=== PATIENT | male | born 1995 | race African-American/Black ===

== ENCOUNTER 2018-05-25 14:50 | Emergency (ER) | payer OTHER ==
[~2018-05-25] VITALS: Ht 172.7 cm; Wt 124.3 kg
[~2018-05-25 14:50] MED LIST: PRED50TA PO; SULF1TAB24 PO; TRIA15OI TP
[2018-05-25] MEDS ORDERED: diphenhydrAMINE 50 MG/ML VIAL IM ONE (15:30)
--- NOTE | 2018-05-25 15:39 | PHYS DOC ---
Past Medical History Past Medical History: Other Additional Past Medical Histor: ADHD, eczema Past Surgical History: No Surgical History Additional Information: 1 PPD Alcohol Use: Occasionally Drug Use: None, Marijuana Adult General Chief Complaint Chief Complaint: Neck Pain HPI HPI Patient is a 23 year old m p/w cc of muscle spasm took three haldols that belonged to his last night because he was very anxious. he feels better now from that regard but woke up today with spasm muscle left ant neck. it was giving him trouble breathing so he called 911. sat 99 on ra in triage. no prior hx of this no suicidal ideation. currently feeling bettte. Review of Systems Review of Systems Constitutional: Denies fever or chills [] Eyes: Denies change in visual acuity, redness, or eye pain [] Musculoskeletal: Denies back pain or joint pain [] Integument: Denies rash or skin lesions [] Neurologic: Denies headache, focal weakness or sensory changes [] Endocrine: Denies polyuria or polydipsia [] All other systems were reviewed and found to be within normal limits, except as documented in this note. Current Medications Current Medications Current Medications Medications (Trade) Dose Ordered Sig/Margaux Start Time Stop Time Status Last Admin Dose Admin Diphenhydramine HCl (Benadryl) 50 mg 1X ONCE 05/25/18 15:30 05/25/18 15:31 DC Allergies Allergies Allergies Coded Allergies Type Severity Reaction Last Updated Verified No Known Drug Allergies 05/12/13 No Physical Exam Physical Exam Constitutional: Well developed, well nourished, no acute distress, non-toxic appearance. [] HENT: Normocephalic, atraumatic, bilateral external ears normal, oropharynx moist, no oral exudates, nose normal. [] Eyes: PERRLA, EOMI, conjunctiva normal, no discharge. [] Neck: mild ttp noted left trap area, no trauma or ecchymosis sseen. Cardiovascular:Heart rate regular rhythm, no murmur [] Lungs & Thorax: Bilateral breath sounds clear to auscultation [] Abdomen: Bowel sounds normal, soft, no tenderness, no masses, no pulsatile masses. [] Skin: Warm, dry, no erythema, no rash. [] Back: No tenderness, no CVA tenderness. [] Extremities: No tenderness, no cyanosis, no clubbing, ROM intact, no edema. [] Neurologic: Alert and oriented X 3, normal motor function, normal sensory function, no focal deficits noted. [] Psychologic: Affect normal, judgement normal, mood normal. [] Current Patient Data Vital Signs Vital Signs Date Time Temp Pulse Resp B/P (MAP) Pulse Ox O2 Delivery O2 Flow Rate FiO2 05/25/18 14:50 98.3 69 18 145/78 (100) 99 Room Air 98.3 EKG EKG [] Radiology/Procedures Radiology/Procedures [] Course & Med Decision Making Course & Med Decision Making Pertinent Labs and Imaging studies reviewed. (See chart for details) []likely dystonic reaction pt airway patent in er, speech normal benadryl given reassurance provided, advised bp f/u in one month Dragon Disclaimer Dragon Disclaimer This electronic medical record was generated, in whole or in part, using a voice recognition dictation system. Departure Departure Impression: Primary Impression: Muscle spasm Additional Impression: Elevated blood pressure reading Disposition: HOME, SELF-CARE Condition: STABLE Patient Instructions: Dystonic Reaction-Brief Problem Qualifiers MARILYN BOWMAN MD May 25, 2018 15:39
[2018-05-25 15:42] VITALS: BP 161/89
== END 2018-05-25 15:50 | disposition home or self-care (01) ==
LOC: ER 14:50
DX: M62.838 Other muscle spasm (principal); M54.2 Cervicalgia; R03.0 Elevated blood-pressure reading, without diagnosis of hypertension; F17.200 Nicotine dependence, unspecified, uncomplicated
CPT/HCPCS: 96372; 99283; J1200

== ENCOUNTER 2018-11-03 21:14 | Emergency (ER) | payer BC ==
[~2018-11-03] VITALS: Ht 175.3 cm; Wt 113.4 kg
[2018-11-03 22:06] LABS: BASO % 0 % (0-3); EOS # 0.2 x10^3/uL (0.0-0.7); EOS % 3 % (0-3); HEMOGLOBIN 14.8 g/dL (13.0-17.5); LYMPH # 3.4 x10^3/uL (1.0-4.8); LYMPH % 39 % (24-48); MEAN CORPUSCULAR HEMOGLOBIN 31 pg (25-35); MEAN CORPUSCULAR HGB CONC 34 g/dL (31-37); MEAN CORPUSCULAR VOLUME 92 fL (79-100); MONO # 0.7 x10^3/uL (0.0-1.1); MONO % 9 % (0-9); NEUT # 4.4 x10^3/uL (1.8-7.7); NEUT % 50 % (31-73); PLATELET COUNT 223 x10^3/uL (140-400); RED BLOOD COUNT 4.77 x10^6/uL (4.30-5.70); RED CELL DISTRIBUTION WIDTH 13.5 % (11.5-14.5); WHITE BLOOD COUNT 8.8 x10^3/uL (4.0-11.0)
[2018-11-03 22:12] LABS: CALCIUM 9.5 mg/dL (8.5-10.1); GFR 110.2
[2018-11-03 22:18] LABS: ALBUMIN/GLOBULIN RATIO 1.1 (1.0-1.7); TOTAL BILIRUBIN 0.3 mg/dL (0.2-1.0); TOTAL PROTEIN 7.8 g/dL (6.4-8.2)
[2018-11-03 23:05] VITALS: BP 130/72
--- NOTE | 2018-11-04 01:16 | PHYS DOC ---
Past Medical History Past Medical History: Other Additional Past Medical Histor: ADHD, eczema Past Surgical History: No Surgical History Alcohol Use: Occasionally Drug Use: None, Marijuana Adult General Chief Complaint Chief Complaint: CHEST WALL PAIN HPI HPI Patient is a 23 year old M P/W CHEST PAIN. ONSET A COUPLE DAYS AGO ELECTRIC SHOCK LEFT CHEST DID GET OUT OF BED THE WRONG WAY THE OTHER DAY NO SOB SOMETIMES THE SHOCK IS ONLY A FEW SECONDS OTHER TIMES IT IS SEVERAL MINUTES AT A TIME NO PMH HAS NOT TRIED ANYTHING FOR RELIEF, HE IS WONDERING WHAT HE SHOULD TAKE OTC. Review of Systems Review of Systems Constitutional: Denies fever or chills [] Eyes: Denies change in visual acuity, redness, or eye pain [] HENT: Denies nasal congestion or sore throat [] Musculoskeletal: Integument: Denies rash or skin lesions [] Neurologic: Denies headache, focal weakness or sensory changes [] Endocrine: Denies polyuria or polydipsia [] All other systems were reviewed and found to be within normal limits, except as documented in this note. Allergies Allergies Allergies Coded Allergies Type Severity Reaction Last Updated Verified No Known Drug Allergies 05/12/13 No Physical Exam Physical Exam Constitutional: Well developed, well nourished, no acute distress, non-toxic appearance. [] HENT: Normocephalic, atraumatic, bilateral external ears normal, oropharynx moist, no oral exudates, nose normal. [] Eyes: PERRLA, EOMI, conjunctiva normal, no discharge. [] Neck: Normal range of motion, no tenderness, supple, no stridor. [] Cardiovascular:Heart rate regular rhythm, no murmur [] Lungs & Thorax: Bilateral breath sounds clear to auscultation [] Abdomen: Bowel sounds normal, soft, no tenderness, no masses, no pulsatile masses. [] Skin: Warm, dry, no erythema, no rash. [] Back: No tenderness, no CVA tenderness. [] Extremities: No tenderness, no cyanosis, no clubbing, ROM intact, no edema. [] Neurologic: Alert and oriented X 3, normal motor function, normal sensory function, no focal deficits noted. [] Psychologic: Affect normal, judgement normal, mood normal. [] Current Patient Data Vital Signs Vital Signs Date Time Temp Pulse Resp B/P (MAP) Pulse Ox O2 Delivery O2 Flow Rate FiO2 11/03/18 21:25 98.2 64 8 127/65 (85) 99 Room Air 98.2 Lab Values Laboratory Tests Test 11/03/18 21:30 White Blood Count 8.8 x10^3/uL (4.0-11.0) Red Blood Count 4.77 x10^6/uL (4.30-5.70) Hemoglobin 14.8 g/dL (13.0-17.5) Hematocrit 44.0 % (39.0-53.0) Mean Corpuscular Volume 92 fL (79-100) Mean Corpuscular Hemoglobin 31 pg (25-35) Mean Corpuscular Hemoglobin Concent 34 g/dL (31-37) Red Cell Distribution Width 13.5 % (11.5-14.5) Platelet Count 223 x10^3/uL (140-400) Neutrophils (%) (Auto) 50 % (31-73) Lymphocytes (%) (Auto) 39 % (24-48) Monocytes (%) (Auto) 9 % (0-9) Eosinophils (%) (Auto) 3 % (0-3) Basophils (%) (Auto) 0 % (0-3) Neutrophils # (Auto) 4.4 x10^3/uL (1.8-7.7) Lymphocytes # (Auto) 3.4 x10^3/uL (1.0-4.8) Monocytes # (Auto) 0.7 x10^3/uL (0.0-1.1) Eosinophils # (Auto) 0.2 x10^3/uL (0.0-0.7) Basophils # (Auto) 0.0 x10^3/uL (0.0-0.2) Prothrombin Time 13.0 SEC (11.7-14.0) Prothrombin Time INR 1.0 (0.8-1.1) Sodium Level 142 mmol/L (136-145) Potassium Level 4.0 mmol/L (3.5-5.1) Chloride Level 105 mmol/L (98-107) Carbon Dioxide Level 26 mmol/L (21-32) Anion Gap 11 (6-14) Blood Urea Nitrogen 16 mg/dL (8-26) Creatinine 1.0 mg/dL (0.7-1.3) Estimated GFR (Cockcroft-Gault) 110.2 BUN/Creatinine Ratio 16 (6-20) Glucose Level 102 mg/dL (70-99) H Calcium Level 9.5 mg/dL (8.5-10.1) Total Bilirubin 0.3 mg/dL (0.2-1.0) Aspartate Amino Transferase (AST) 29 U/L (15-37) Alanine Aminotransferase (ALT) 50 U/L (16-63) Alkaline Phosphatase 58 U/L (46-116) Troponin I Quantitative < 0.017 ng/mL (0.000-0.055) CL-Vfp-D-Type Natriuretic Peptide 20 pg/mL (0-124) Total Protein 7.8 g/dL (6.4-8.2) Albumin 4.0 g/dL (3.4-5.0) Albumin/Globulin Ratio 1.1 (1.0-1.7) Laboratory Tests 11/03/18 21:30 Laboratory Tests 11/03/18 21:30 EKG EKG []NSR RATE 66 NO ACUTE ISCHEMIC CHAGNES NOTED. NORMAL INTERVALS Radiology/Procedures Radiology/Procedures [] Impressions: CXR MY READ NORMAL BONES HEART AND LUNGS Course & Med Decision Making Course & Med Decision Making Pertinent Labs and Imaging studies reviewed. (See chart for details) []PROBABLY CHEST WALL PAIN NORMAL VITALS, EKG CXR PERC NEGATIVE PT WELL APPEARING Dragon Disclaimer Dragon Disclaimer This electronic medical record was generated, in whole or in part, using a voice recognition dictation system. Departure Departure Impression: Primary Impression: Chest wall pain Disposition: HOME, SELF-CARE Condition: STABLE Patient Instructions: Chest Wall Pain MARILYN BOWMAN MD Nov 04, 2018 01:16
--- NOTE | 2018-11-04 06:52 | EKG ---
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
--- NOTE | 2018-11-04 07:41 | RAD ---
Examination: PORTABLE CHEST 1V History: Chest pain Comparison/Correlation: 12/30/2010 two-view chest x-ray exam Findings: Portable upright frontal views of the chest were obtained. Heart size and pulmonary vasculature are normal. No infiltrate or pleural effusion. No pneumothorax. Bony structures are unremarkable. Impression: No active disease. Electronically signed by: Richi Mc MD (11/04/2018 7:38 AM) [facility]
== END 2018-11-03 23:30 | disposition home or self-care (01) ==
LOC: ER 21:14
DX: R07.89 Other chest pain (principal)
CPT/HCPCS: 36415; 71045; 80053; 83880; 84484; 85025; 85610; 93005; 99285

== ENCOUNTER 2019-04-18 17:46 | Emergency (ER) | payer SELFPAY ==
--- NOTE | 2019-04-18 18:29 | PHYS DOC ---
Past Medical History Past Medical History: Other Additional Past Medical Histor: ADHD, eczema Past Surgical History: No Surgical History Alcohol Use: Occasionally Drug Use: None, Marijuana Adult General Chief Complaint Chief Complaint: TESTICULAR PAIN OR INJURY HPI HPI Patient is a 24 year old male with history of ADHD and eczema who presents with complaint of testicular pain. Patient complaining of right testicular pain for the last 3 days that getting force with movement his leg and rated his pain 9/10. Patient denies urinary symptoms, no discharge, injury, history of the same problem, abdominal pain, nausea and vomiting, fever and chills. Review of Systems Review of Systems Constitutional: Denies fever or chills [] Eyes: Denies change in visual acuity, redness, or eye pain [] HENT: Denies nasal congestion or sore throat [] Respiratory: Denies cough or shortness of breath [] Cardiovascular: No additional information not addressed in HPI [] GI: Denies abdominal pain, nausea, vomiting, bloody stools or diarrhea [] : Denies dysuria or hematuria [] Musculoskeletal: Denies back pain or joint pain [] Integument: Denies rash or skin lesions [] Neurologic: Denies headache, focal weakness or sensory changes [] Endocrine: Denies polyuria or polydipsia [] All other systems were reviewed and found to be within normal limits, except as documented in this note. Current Medications Current Medications Current Medications Medications (Trade) Dose Ordered Sig/[facility] Start Time Stop Time Status Last Admin Dose Admin Ketorolac Tromethamine (Toradol Im) 60 mg 1X ONCE 04/18/19 18:30 04/18/19 18:31 DC 04/18/19 18:31 60 MG Allergies Allergies Allergies Coded Allergies Type Severity Reaction Last Updated Verified No Known Drug Allergies 05/12/13 No Physical Exam Physical Exam Constitutional: Well nourished, mild distress, non-toxic appearance. [] HENT: Normocephalic, atraumatic. Eyes: PERRLA, EOMI, conjunctiva normal, no discharge. [] Neck: Normal range of motion, no tenderness, supple, no stridor. [] Cardiovascular:Heart rate regular rhythm, no murmur [] Lungs & Thorax: Bilateral breath sounds clear to auscultation [] Abdomen: Bowel sounds normal, soft, no tenderness, no masses, no pulsatile masses. Genital exam and present of polymer specialist showed mild edema of right testicle with tenderness of the superior pole of the right testicle without palpated mass, normal penile without discharge. Skin: Warm, dry, no erythema, no rash. [] Back: No tenderness, no CVA tenderness. [] Extremities: No tenderness, no cyanosis, no clubbing, ROM intact, no edema. [] Neurologic: Alert and oriented X 3, no focal deficits noted. [] Psychologic: Affect normal, mood normal. [] Current Patient Data Vital Signs Vital Signs Date Time Temp Pulse Resp B/P (MAP) Pulse Ox O2 Delivery O2 Flow Rate FiO2 04/18/19 18:22 97.9 70 20 135/71 (92) 96 Room Air 97.9 Lab Values Laboratory Tests Test 04/18/19 18:35 Urine Collection Type Void Urine Color Yellow Urine Clarity Turbid Urine pH 6.0 Urine Specific Pickrell >=1.030 Urine Protein Negative mg/dL (NEG-TRACE) Urine Glucose (UA) Negative mg/dL (NEG) Urine Ketones (Stick) Negative mg/dL (NEG) Urine Blood Negative (NEG) Urine Nitrite Negative (NEG) Urine Bilirubin Negative (NEG) Urine Urobilinogen Dipstick 0.2 mg/dL (0.2 mg/dL) Urine Leukocyte Esterase Small (NEG) Urine RBC 0 /HPF (0-2) Urine WBC 20-40 /HPF (0-4) Urine Squamous Epithelial Cells Few /LPF Urine Bacteria Few /HPF (0-FEW) Urine Mucus Marked /LPF EKG EKG [] Radiology/Procedures Radiology/Procedures [facility] [address] [place] [address] IMAGING REPORT Signed PATIENT: ANABELL AQUINO ACCOUNT: [id number] : 1995 LOCATION: ER AGE: 24 SEX: M EXAM STATUS: PRE ER ORD. PHYSICIAN: CRESCENCIO SIMS MD REASON: RIGHT TESTICULAR PAIN PROCEDURE: TESTICULAR/SCROTUM Study: US TESTICULAR/SCROTUM Indication: Right testicular pain. Comparison: None. Technique: Targeted grayscale and color Doppler sonographic evaluation of the scrotum/scrotal contents. Findings: Homogeneous testicular echotexture. The right testicle measures 4.0 x 3.0 x 2.6 cm. The left testicle measures 4.7 x 3.1 x 2.8 cm. Doppler flow to both testicles is maintained and is relatively symmetric. The right epididymal body and tail are asymmetrically prominent in size and more vascular relative to the left. Hydrocele seen on the right. Mild scrotal thickening on the right relative to the left. No scrotal fluid collection. No varicocele seen with Valsalva. Impression: 1. Asymmetrically prominent and hypervascular right epididymal body and tail relative to the left most compatible with epididymitis. No associated orchitis. No testicular torsion. 2. Right-sided hydrocele and mild scrotal wall thickening likely reactive to epididymitis. No scrotal abscess. Electronically signed by: SANNA GARSIA MD (04/18/2019 7:31 PM) [facility] DICTATED and SIGNED BY: SANNA GARSIA MD DATE: 04/18/191930 Course & Med Decision Making Course & Med Decision Making Pertinent Labs and Imaging studies reviewed. (See chart for details) Evaluation of patient in ER showed 24-year-old male patient with complaining of right scrotal pain for 3 days without injury. UA showed UTI and testicular ultrasound showed epididymitis. Patient was treated with Toradol and Rocephin in ER. Plan discharge patient home with diagnosis of epididymitis and UTI. I've spoken with the patient and/or caregivers. I've explained the patient's condition, diagnosis and treatment plan based on information available to me at this time. I've answered the patient's and/or caregivers questions and addressed any concerns. The patient and/or caregivers have a good understanding the patient's diagnosis, condition and treatment plan as can be expected at this point. Vital signs have been stabilized. The patient's condition is stable for discharge from the emergency department. The patient will pursue further outpatient evaluation with her primary care provider or other designated consulting physician as outlined in the discharge instructions. Patient and/or caregivers are agreeable to this plan of care and follow-up instructions have been explained in detail. The patient and/or caregivers have received these instructions in written format and expressed u nderstanding of these discharge instructions. The patient and her caregivers are aware that if any significant change in condition or worsening of symptoms should prompt him to immediately return to this of the closest emergency department. If an emergent department is not readily available I would encourage him to call 911. Dasia Disclaimer Dasia Disclaimer This electronic medical record was generated, in whole or in part, using a voice recognition dictation system. Departure Departure Impression: Primary Impression: Acute epididymitis Additional Impression: Urinary tract infection Disposition: HOME, SELF-CARE (at 1999) Condition: IMPROVED Referrals: NO PCP (PCP) Patient Instructions: Epididymitis, Urinary Tract Infection Additional Instructions: Drink plenty of liquids Follow-up with your primary care physician in 3-5 days Return to ER if not getting better Thank you for visiting [facility]. We appreciate you trusting us with your care. If any additional problems come up don't hesitate to return to visit us. Please follow up with your primary care provider so they can plan additional care if needed and know about the problem that you had. If symptoms worsen come back to the Emergency Department. Any concerning symptoms that start such as chest pain, shortness of air, weakness or numbness on one side of the body, running high fevers or any other concerning symptoms return to the ER. Scripts Naproxen (NAPROSYN) 500 Mg Tablet 1 TAB PO BID for pain, #20 TAB Prov: CRESCENCIO SIMS MD 04/18/19 Ciprofloxacin Hcl (CIPRO) 250 Mg Tablet 1 TAB PO BID for infection, #20 TAB Prov: CRESCENCIO SIMS MD 04/18/19 Problem Qualifiers Additional Impression: Urinary tract infection Urinary tract infection type: site unspecified Hematuria presence: without hematuria Qualified Codes: N39.0 - Urinary tract infection, site not specified CRESCENCIO SIMS MD Apr 18, 2019 18:29
[2019-04-18] MEDS ORDERED: KETOROLAC 60 MG/2 ML VIAL. IM ONE (18:30)
[2019-04-18 18:54] LABS: BILIRUBIN,URINE NEGATIVE (NEG); CLARITY,URINE TURBID; COLOR,URINE YELLOW; NITRITE,URINE NEGATIVE (NEG); PROTEIN,URINE NEGATIVE (NEG-TRACE); UROBILINOGEN,URINE 0.2 mg/dL (0.2 mg/dL)
[2019-04-18 19:15] LABS: BACTERIA,URINE FEW /HPF (0-FEW); RBC,URINE 0 /HPF (0-2); SQUAMOUS EPITHELIAL CELL,UR FEW /LPF; WBC,URINE 20-40 /HPF (0-4)
--- NOTE | 2019-04-18 19:34 | RAD ---
Study: US TESTICULAR/SCROTUM Indication: Right testicular pain. Comparison: None. Technique: Targeted grayscale and color Doppler sonographic evaluation of the scrotum/scrotal contents. Findings: Homogeneous testicular echotexture. The right testicle measures 4.0 x 3.0 x 2.6 cm. The left testicle measures 4.7 x 3.1 x 2.8 cm. Doppler flow to both testicles is maintained and is relatively symmetric. The right epididymal body and tail are asymmetrically prominent in size and more vascular relative to the left. Hydrocele seen on the right. Mild scrotal thickening on the right relative to the left. No scrotal fluid collection. No varicocele seen with Valsalva. Impression: 1. Asymmetrically prominent and hypervascular right epididymal body and tail relative to the left most compatible with epididymitis. No associated orchitis. No testicular torsion. 2. Right-sided hydrocele and mild scrotal wall thickening likely reactive to epididymitis. No scrotal abscess. Electronically signed by: SANNA GARSIA MD (04/18/2019 7:31 PM) [id number]
[2019-04-18] MEDS ORDERED: cefTRIAXone IM 1 GM VIAL IM ONE (19:45)
[2019-04-18] MEDS ORDERED: CIPR250T30 PO (19:50)
[2019-04-18] MEDS ORDERED: NAPR-683 PO (19:50)
[2019-04-18 19:56] VITALS: BP 138/81
== END 2019-04-18 20:17 | disposition home or self-care (01) ==
LOC: ER 17:46
DX: N45.1 Epididymitis (principal); N39.0 Urinary tract infection, site not specified
CPT/HCPCS: 76870; 81001; 87086; 96372; 99285; J0696; J1885

== ENCOUNTER 2019-09-29 17:40 | Emergency (ER) | payer MEDICAID ==
[~2019-09-29] VITALS: Ht 177.8 cm; Wt 132.3 kg
[~2019-09-29 17:40] MED LIST changes: +CIPR250T30 PO; +NAPR-683 PO
[2019-09-29] MEDS ORDERED: KETOROLAC 60 MG/2 ML VIAL. IM ONE (18:30)
--- NOTE | 2019-09-29 18:55 | PHYS DOC ---
Past Medical History Past Medical History: Other Additional Past Medical Histor: ADHD, eczema (SABRINA OROPEZA APRN) Past Surgical History: No Surgical History (SABRINA OROPEZA APRN) Smoking Status: Current Every Day Smoker Additional Information: 1 ppd Alcohol Use: Occasionally Additional Information: reports drinking 2 times weekly Drug Use: None, Marijuana Social History Narrative: daily use (SABRINA OROPEZA APRN) General Adult EDM: Chief Complaint: RIB PAIN HPI: HPI: Patient is a 24 year old male who presents with complaints of a 4-day history of intermittent left-sided chest arm and neck discomfort that increases with deep breathing and movement of his left arm. Patient states this last episode that concerned him and brought him to the ER today started approximately 1 hour prior to his arrival after he was smoking a cigarette. Patient states he has a 16-year history of 1 pack/day cigarette smoking. Patient admits to marijuana use. Patient denies alcohol use other than occasional consumption with friends. Patient denies other illicit drug use. Patient denies shortness of breath, patient denies diaphoresis. Patient denies injuring his chest, also denies trauma to his chest. Patient denies nausea, vomiting, diarrhea. Patient denies other people that live in his house having the same signs and symptoms. (SABRINA OROPEZA APRN) Review of Systems: Review of Systems: Constitutional: Denies fever or chills. [] Eyes: Denies change in visual acuity. [] HENT: Denies nasal congestion or sore throat. [] Respiratory: Denies cough or shortness of breath. [] Cardiovascular: LEFT SIDED CHEST PAIN WITH RADIATION TO LEFT ARM AND LEFT SIDE OF NECK THAT INCREASES IN PAIN WITH MOVEMENT AND DEEP BREATHING. GI: Denies abdominal pain, nausea, vomiting, bloody stools or diarrhea. [] : Denies dysuria. [] Musculoskeletal: Denies back pain or joint pain. [] Integument: Denies rash. [] Neurologic: Denies headache, focal weakness or sensory changes. [] (SABRINA OROPEZA APRN) Heart Score: Risk Factors: Risk Factors: DM, Current or recent (<one month) smoker, HTN, HLP, family history of CAD, obesity. Risk Scores: Score 0 - 3: 2.5% MACE over next 6 weeks - Discharge Home Score 4 - 6: 20.3% MACE over next 6 weeks - Admit for Clinical Observation Score 7 - 10: 72.7% MACE over next 6 weeks - Early Invasive Strategies (SABRINA OROPEZA APRN) Family History: Family History: No significant family history related to today's chief complaint in the em ergency department (SABRINA OROPEZA APRN) Current Medications: Patient denies current home medication use. Current Medications Medications (Trade) Dose Ordered Sig/Margaux Start Time Stop Time Status Last Admin Dose Admin Ketorolac Tromethamine (Toradol Im) 60 mg 1X ONCE 09/29/19 18:30 09/29/19 18:31 DC 09/29/19 18:40 60 MG (SABRINA OROPEZA APRN) Allergies: Allergies: Allergies Coded Allergies Type Severity Reaction Last Updated Verified No Known Drug Allergies 09/29/19 No (SABRINA OROPEZA APRN) Physical Exam: PE: Constitutional: Well developed, well nourished, no acute distress, non-toxic appearance. [] HENT: Normocephalic, atraumatic, bilateral external ears normal, oropharynx moist, no oral exudates, nose normal. [] Eyes: PERRLA, EOMI, conjunctiva normal, no discharge. [] Neck: Normal range of motion, no tenderness, supple, no stridor. [] Cardiovascular:Heart rate regular rhythm, no murmur [] Lungs & Thorax: Bilateral breath sounds clear to auscultation [] Abdomen: Bowel sounds normal, soft, no tenderness, no masses, no pulsatile masses. [] Skin: Warm, dry, no erythema, no rash. [] Back: No tenderness, no CVA tenderness. [] Extremities: Right upper extremity tenderness to palpation and passive range of motion and active range of motion without cyanosis, clubbing or edema. Neurologic: Alert and oriented X 3, normal motor function, normal sensory function, no focal deficits noted. [] Psychologic: Affect normal, judgement normal, mood normal. Musculoskeletal: Pain with palpation to the left chest wall area and adjacent structures. (SABRINA OROPEZA APRN) Current Patient Data: Vital Signs: Vital Signs Date Time Temp Pulse Resp B/P (MAP) Pulse Ox O2 Delivery O2 Flow Rate FiO2 09/29/19 18:08 98.3 82 16 164/97 (119) 98 Room Air 98.3 (SABRINA OROPEZA APRN) EKG: EKG: [] (SABRINA OROPEZA APRN) Radiology/Procedures: Radiology/Procedures: [] (SABRINA OROPEZA APRN) Radiology/Procedures: EXAM: CHEST 2 VIEWS. HISTORY: Left chest pain. COMPARISON: 11/03/2018. FINDINGS: Frontal and lateral views of the chest are obtained. There are no confluent infiltrates. There is no pneumothorax or pleural effusion. The heart is not enlarged. IMPRESSION: 1. No confluent infiltrates. Electronically signed by: Yazmin Florian MD (09/29/2019 7:01 PM) [facility] (LEX ANDERSEN APRN) Course & Med Decision Making: Course & Med Decision Making Pertinent Labs and Imaging studies reviewed. (See chart for details) Transferred care to ED provider Lex Lazo APRN. Awaiting diagnostic results. (SABRINA OROPEZA APRN) Course & Med Decision Making Reviewed imaging. Without acute abnormalities. Patient reporting he feels much better following the Toradol injection. Patient has full range of motion extremity. Discussed with patient importance of smoking cessation as well as continued use of Tylenol or ibuprofen as needed. Follow-up with primary care (LEX ANDERSEN APRN) Dasia Disclaimer: Dragon Disclaimer: This electronic medical record was generated, in whole or in part, using a voice recognition dictation system. (SABRINA OROPEZA APRN) Departure Departure Impression: Primary Impression: Joint pain Qualified Codes: M25.512 - Pain in left shoulder Disposition: 01 HOME, SELF-CARE Condition: STABLE Referrals: George CHEW MD (PCP) Patient Instructions: Shoulder Pain, [id number] Additional Instructions: As we discussed, continue to take Tylenol or ibuprofen for your discomfort. Stop your smoking. Follow-up with your primary care provider as needed Justicifation of Admission Dx: Justifications for Admission: Justification of Admission Dx: N/A (LEX ANDERSEN APRN) SABRINA OROPEZA APRN Sep 29, 2019 18:55 LEX ANDERSEN APRN Sep 29, 2019 19:17
--- NOTE | 2019-09-29 19:04 | RAD ---
EXAM: CHEST 2 VIEWS. HISTORY: Left chest pain. COMPARISON: 11/03/2018. FINDINGS: Frontal and lateral views of the chest are obtained. There are no confluent infiltrates. There is no pneumothorax or pleural effusion. The heart is not enlarged. IMPRESSION: 1. No confluent infiltrates. Electronically signed by: Yazmin Florian MD (09/29/2019 7:01 PM) [facility]
[2019-09-29 19:32] VITALS: BP 150/88
--- NOTE | 2019-09-30 10:21 | EKG ---
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
== END 2019-09-29 19:32 | disposition home or self-care (01) ==
LOC: ER 17:40
DX: M25.512 Pain in left shoulder (principal); R07.81 Pleurodynia; F90.9 Attention-deficit hyperactivity disorder, unspecified type; F17.210 Nicotine dependence, cigarettes, uncomplicated; F12.90 Cannabis use, unspecified, uncomplicated
CPT/HCPCS: 71046; 93005; 96372; 99283; J1885

== ENCOUNTER 2020-03-05 09:50 | Emergency (ER) | payer MEDICAID ==
[~2020-03-05] VITALS: Ht 172.7 cm; Wt 86.0 kg
[2020-03-05 11:59] LABS: BASO # 0.1 x10^3/uL (0.0-0.2); BASO % 1 % (0-3); EOS # 0.1 x10^3/uL (0.0-0.7); EOS % 1 % (0-3); HEMATOCRIT 45.1 % (39.0-53.0); HEMOGLOBIN 14.9 g/dL (13.0-17.5); LYMPH % 34 % (24-48); MEAN CORPUSCULAR HEMOGLOBIN 30 pg (25-35); MEAN CORPUSCULAR HGB CONC 33 g/dL (31-37); MEAN CORPUSCULAR VOLUME 92 fL (79-100); MONO # 0.8 x10^3/uL (0.0-1.1); MONO % 10 % (0-9); NEUT # 4.8 x10^3/uL (1.8-7.7); NEUT % 55 % (31-73); PLATELET COUNT 215 x10^3/uL (140-400); RED BLOOD COUNT 4.91 x10^6/uL (4.30-5.70); RED CELL DISTRIBUTION WIDTH 13.9 % (11.5-14.5); WHITE BLOOD COUNT 8.8 x10^3/uL (4.0-11.0)
[2020-03-05 12:22] LABS: CALCIUM 9.3 mg/dL (8.5-10.1); CREATININE 0.7 mg/dL (0.7-1.3); GFR 163.7; POTASSIUM 4.1 mmol/L (3.5-5.1)
[2020-03-05 12:26] LABS: BARBITURATES NEG (NEG); BENZODIAZEPINES NEG (NEG); CANNABINOIDS POS (NEG); COCAINE NEG (NEG); METHADONE NEG (NEG); OPIATES NEG (NEG); PHENCYCLIDINE NEG (NEG)
[2020-03-05 12:28] LABS: ALBUMIN/GLOBULIN RATIO 1.1 (1.0-1.7); MAGNESIUM 1.8 mg/dL (1.8-2.4); TOTAL BILIRUBIN 0.3 mg/dL (0.2-1.0); TOTAL PROTEIN 7.8 g/dL (6.4-8.2)
[2020-03-05 12:32] LABS: AMPHETAMINE/METHAMPHETAMINE NEG (NEG)
--- NOTE | 2020-03-05 12:43 | ED.ADGEN ---
Past Medical History Past Medical History: No Pertinent History, Other Additional Past Medical Histor: ADHD, eczema Past Surgical History: No Surgical History Smoking Status: Current Every Day Smoker Alcohol Use: Occasionally Drug Use: None, Marijuana General Adult EDM: Chief Complaint: HYPERTENSION HPI: HPI: Patient is a 25 year old AA male who presents to the emergency department with complaints of episode of dizziness where the room felt like it was spinning that happened yesterday. He currently denies any dizziness. Patient denies any chest pain, palpitations, nausea, vomiting, diarrhea, abdominal pain and back pain, body aches, fatigue, fever, or shortness of breath. He denies any vision changes or sensitivity to light. Patient denies any devious diagnosis of high blood pressure. He states that he smokes half a pack of cigarettes daily and he smokes marijuana. He denies any other illicit drug use. He currently denies any pain or complaints. Review of Systems: Review of Systems: Complete ROS is negative unless otherwise noted in HPI. Allergies: Allergies: Allergies Coded Allergies Type Severity Reaction Last Updated Verified No Known Drug Allergies 09/29/19 No Physical Exam: PE: See Above Constitutional: Well developed, well nourished, no acute distress, non-toxic appearance, obese. [] HENT: Normocephalic, atraumatic, bilateral external ears normal, nose normal. [] Eyes: PERRLA, EOMI, conjunctiva normal, no discharge, no nystagmus. [] Neck: Normal range of motion, no stridor. [] Cardiovascular:Heart rate regular rhythm Lungs & Thorax: Respirations even and unlabored, no retractions, no respiratory distress Abdomen: soft, no tenderness Skin: Warm, dry, no erythema, no rash. [] Extremities: No cyanosis, ROM intact, no edema. [] Neurologic: Alert and oriented X 3, normal motor, normal sensation, no focal deficits noted. [] Psychologic: Affect normal, judgement normal, mood normal. [] Current Patient Data: Labs: Laboratory Tests Test 03/05/20 11:33 03/05/20 12:00 White Blood Count 8.8 x10^3/uL (4.0-11.0) Red Blood Count 4.91 x10^6/uL (4.30-5.70) Hemoglobin 14.9 g/dL (13.0-17.5) Hematocrit 45.1 % (39.0-53.0) Mean Corpuscular Volume 92 fL (79-100) Mean Corpuscular Hemoglobin 30 pg (25-35) Mean Corpuscular Hemoglobin Concent 33 g/dL (31-37) Red Cell Distribution Width 13.9 % (11.5-14.5) Platelet Count 215 x10^3/uL (140-400) Neutrophils (%) (Auto) 55 % (31-73) Lymphocytes (%) (Auto) 34 % (24-48) Monocytes (%) (Auto) 10 % (0-9) H Eosinophils (%) (Auto) 1 % (0-3) Basophils (%) (Auto) 1 % (0-3) Neutrophils # (Auto) 4.8 x10^3/uL (1.8-7.7) Lymphocytes # (Auto) 3.0 x10^3/uL (1.0-4.8) Monocytes # (Auto) 0.8 x10^3/uL (0.0-1.1) Eosinophils # (Auto) 0.1 x10^3/uL (0.0-0.7) Basophils # (Auto) 0.1 x10^3/uL (0.0-0.2) Sodium Level 140 mmol/L (136-145) Potassium Level 4.1 mmol/L (3.5-5.1) Chloride Level 104 mmol/L (98-107) Carbon Dioxide Level 26 mmol/L (21-32) Anion Gap 10 (6-14) Blood Urea Nitrogen 13 mg/dL (8-26) Creatinine 0.7 mg/dL (0.7-1.3) Estimated GFR (Cockcroft-Gault) 163.7 BUN/Creatinine Ratio 19 (6-20) Glucose Level 94 mg/dL (70-99) Calcium Level 9.3 mg/dL (8.5-10.1) Magnesium Level 1.8 mg/dL (1.8-2.4) Total Bilirubin 0.3 mg/dL (0.2-1.0) Aspartate Amino Transferase (AST) 32 U/L (15-37) Alanine Aminotransferase (ALT) 51 U/L (16-63) Alkaline Phosphatase 62 U/L (46-116) Total Protein 7.8 g/dL (6.4-8.2) Albumin 4.0 g/dL (3.4-5.0) Albumin/Globulin Ratio 1.1 (1.0-1.7) Urine Opiates Screen Neg (NEG) Urine Methadone Screen Neg (NEG) Urine Barbiturates Neg (NEG) Urine Phencyclidine Screen Neg (NEG) Urine Amphetamine/Methamphetamine Neg (NEG) Urine Benzodiazepines Screen Neg (NEG) Urine Cocaine Screen Neg (NEG) Urine Cannabinoids Screen Pos (NEG) Urine Ethyl Alcohol Neg (NEG) Laboratory Tests 03/05/20 11:33 Laboratory Tests 03/05/20 11:33 Vital Signs: Vital Signs Date Time Temp Pulse Resp B/P (MAP) Pulse Ox O2 Delivery O2 Flow Rate FiO2 03/05/20 11:58 74 140/77 (98) 99 Room Air 03/05/20 10:53 97.7 18 97.7 EKG: EK-sinus rhythm, rate of 89, no STEMI, normal EKG, read by Dr. Dyer [] Heart Score: Risk Factors: Risk Factors: DM, Current or recent (<one month) smoker, HTN, HLP, family history of CAD, obesity. Risk Scores: Score 0 - 3: 2.5% MACE over next 6 weeks - Discharge Home Score 4 - 6: 20.3% MACE over next 6 weeks - Admit for Clinical Observation Score 7 - 10: 72.7% MACE over next 6 weeks - Early Invasive Strategies Radiology/Procedures: Radiology/Procedures: [] Course & Med Decision Making: Course & Med Decision Making Pertinent Labs and Imaging studies reviewed. (See chart for details) 25-year-old male who presented to the emergency department with complaints of an episode of dizziness that happened yesterday patient states that he felt like the room was spinning. Patient's EKG was unremarkable. CBC and CMP revealed no acute findings. Patient's urine drug screen was positive for marijuana patient did self report. His vital signs are stable in the emergency department. I educated patient on high blood pressure while in the emergency department, I encouraged him to follow-up with a primary care doctor for further management of his health and possible high blood pressure. Time assessment patient blood pressure was 140/70. He denied any complaints. Patient is appropriate for outpatient follow-up, advised him to return to the ER if symptoms returned or he develops fever, chest pain, or headache. Patient verbalized an understanding of home care, medications, follow-up, and return to ED instructions and was in agreement with the plan of care. [] Carloson Disclaimer: Dasia Disclaimer: This electronic medical record was generated, in whole or in part, using a voice recognition dictation system. Departure Departure Impression: Primary Impression: High blood pressure Additional Impression: Episode of dizziness Disposition: 01 DC HOME SELF CARE/HOMELESS Condition: STABLE Referrals: NO PCP (PCP) Patient Instructions: Dizziness, [id number], Hypertension, [id number] Additional Instructions: Use the list provided to establish care with a primary care provider. I recommend that you stop smoking and using marijuana. Follow the instructions provided. Return to the ER if your symptoms worsen or you develop chest pain, fever, or headache. [facility] [address] [place] [address] [facility] [address] [place] [address] [facility] [address] [facility] [place] [address] [facility] [address] [place] [address] Counts Include [address] [facility] [address] [place] [address] [facility] [address] [place] [address] [facility] [address] [place] [address] [facility] [place] [address] [place] [address] [facility] [address] [place] [address] [facility] [address] [place] [address] Problem Qualifiers Primary Impression: High blood pressure Hypertension type: unspecified Qualified Codes: I10 - Essential (primary) hypertension RONDA MANZO APRN Mar 05, 2020 12:43
[2020-03-05 12:57] VITALS: BP 122/73
== END 2020-03-05 12:59 | disposition home or self-care (01) ==
LOC: ER 09:50
DX: I10 Essential (primary) hypertension (principal); R42 Dizziness and giddiness; F90.9 Attention-deficit hyperactivity disorder, unspecified type; F17.200 Nicotine dependence, unspecified, uncomplicated
CPT/HCPCS: 36415; 80053; 80307; 83735; 85025; 99284

== ENCOUNTER 2020-05-21 22:27 | Emergency (ER) | payer MEDICAID ==
[~2020-05-21] VITALS: Ht 177.8 cm; Wt 104.5 kg
[2020-05-21 22:48] VITALS: BP 160/98
[2020-05-21] MEDS ORDERED: HYDR-2761 PO ×2 (23:08→23:09)
[2020-05-21] MEDS ORDERED: PENI500T PO (23:08)
--- NOTE | 2020-05-21 23:10 | PHYS DOC ---
Past Medical History Past Medical History: No Pertinent History, Other Additional Past Medical Histor: ADHD, eczema (FRANCISCO J [facility]CON [facility] TECHNICIAN) Past Surgical History: No Surgical History (FRANCISCO J [facility] TECHNICIAN) Smoking Status: Current Every Day Smoker Alcohol Use: Occasionally Drug Use: None, Marijuana (FRANCISCO J [facility] TECHNICIAN) General Adult EDM: Chief Complaint: DENTAL PROBLEM HPI: HPI: Patient is a 25 year old male who presents with was here last month with a dental abscess and took all his antibiotics and pain medication and felt better so he never went to the dentist for tooth removal. He states he does have a dentist to go to. He states he has been taking Tylenol only for pain and rates his pain a 10/10 as this time. (FRANCISCO J [facility] TECHNICIAN) Review of Systems: Review of Systems: Constitutional: Denies fever or chills. [] Eyes: Denies change in visual acuity. [] HENT: Denies nasal congestion or sore throat. + Dental pain, +Dental abscess[] Respiratory: Denies cough or shortness of breath. [] Cardiovascular: Denies chest pain or edema. [] GI: Denies abdominal pain, nausea, vomiting, bloody stools or diarrhea. [] : Denies dysuria. [] Musculoskeletal: Denies back pain or joint pain. [] Integument: Denies rash. +Left lower facial swelling.[] Neurologic: Denies headache, focal weakness or sensory changes. [] Endocrine: Denies polyuria or polydipsia. [] Lymphatic: Denies swollen glands. [] Psychiatric: Denies depression or anxiety. [] (FRANCISCO J [facility] TECHNICIAN) Heart Score: Risk Factors: Risk Factors: DM, Current or recent (<one month) smoker, HTN, HLP, family history of CAD, obesity. Risk Scores: Score 0 - 3: 2.5% MACE over next 6 weeks - Discharge Home Score 4 - 6: 20.3% MACE over next 6 weeks - Admit for Clinical Observation Score 7 - 10: 72.7% MACE over next 6 weeks - Early Invasive Strategies ([facility] TECHNICIAN) Allergies: Allergies: Allergies Coded Allergies Type Severity Reaction Last Updated Verified No Known Drug Allergies 09/29/19 No (FRANCISCO J [facility] TECHNICIAN) Physical Exam: PE: Constitutional: Well developed, well nourished, no acute distress, non-toxic appearance. [] HENT: Normocephalic, atraumatic, bilateral external ears normal, oropharynx moist, no oral exudates, nose normal. Left lower sided facial swelling 2+ with tenderness. No facial cellulitis. [] Eyes: PERRLA, EOMI, conjunctiva normal, no discharge. [] Neck: Normal range of motion, no tenderness, supple, no stridor. [] Cardiovascular:Heart rate regular rhythm, no murmur [] Lungs & Thorax: Bilateral breath sounds clear to auscultation [] Abdomen: Bowel sounds normal, soft, no tenderness, no masses, no pulsatile masses. [] Skin: Warm, dry, no erythema, no rash. [] Back: No tenderness, no CVA tenderness. [] Extremities: No tenderness, no cyanosis, no clubbing, ROM intact, no edema. [] Neurologic: Alert and oriented X 3, normal motor function, normal sensory function, no focal deficits noted. [] Psychologic: Affect normal, judgement normal, mood normal. [] (FRANCISCO J ALARCON APRN) EKG: EKG: [] (FRANCISCO J ALARCON APRN) Radiology/Procedures: Radiology/Procedures: [] (FRANCISCO J ALARCON APRN) Course & Med Decision Making: Course & Med Decision Making Pertinent Labs and Imaging studies reviewed. (See chart for details) See HPI. Denies abdominal pain, nausea, vomiting, fever, dizziness, body aches. He does have 1+ left sided facial swelling. Patient has many dental caries and missing teeth. Alert and oriented x4. Skin pink warm and dry. Speaks in full clear sentences. Afebrile. [] (FRANCISCO J ALARCON APRN) Dragon Disclaimer: Dragon Disclaimer: This electronic medical record was generated, in whole or in part, using a voice recognition dictation system. (FRANCISCO J ALARCON APRN) Departure Departure Impression: Primary Impression: Pain, dental Additional Impression: Dental abscess Disposition: 01 DC HOME SELF CARE/HOMELESS Condition: STABLE Referrals: NO PCP (PCP) Patient Instructions: Dental Abscess, Dental Pain Additional Instructions: Follow up with dentist as soon as possible. Take medication as prescribed and with food. Remember that pain medication will make you sleepy so do not drive or drink alcohol with the medication. Scripts Hydrocodone Bit/Acetaminophen (HYDROCODONE-APAP 5-325 ) 1 Tab Tablet 1 TAB PO PRN Q6HRS PRN for PAIN, #6 TAB 0 Refills Prov: FRANCISCO J ALARCON APRN 05/21/20 Penicillin V Potassium (PENICILLIN V POTASSIUM) 500 Mg Tablet 1 TAB PO QID, #40 TAB Prov: FRANCISCO J ALARCON APRN 05/21/20 Attending Signature Attending Signature I have reviewed the PA/GEOLOGICAL SAMPLE TESTER's note and plan of care. I was available for consultation as needed during the patient's visit in the emergency department. I agree with the clinical impression, plan, and disposition. (SABRINA BARNES DO) FRANCISCO J ALARCON APRN May 21, 2020 23:10 SABRINA BARNES DO May 23, 2020 02:16
== END 2020-05-21 23:13 | disposition home or self-care (01) ==
LOC: ER 22:27
DX: K04.7 Periapical abscess without sinus (principal); F17.200 Nicotine dependence, unspecified, uncomplicated; F90.9 Attention-deficit hyperactivity disorder, unspecified type
CPT/HCPCS: 99283

== ENCOUNTER 2020-09-06 12:39 | Emergency (ER) | payer MEDICAID ==
[~2020-09-06] VITALS: Ht 175.3 cm; Wt 104.5 kg
[~2020-09-06 12:39] MED LIST changes: +HYDR-2761 PO; +PENI500T PO
[2020-09-06] MEDS ORDERED: LORA-627 PO ×2 (15:24→15:29)
--- NOTE | 2020-09-06 15:29 | PHYS DOC ---
Past Medical History Past Medical History: Other Additional Past Medical Histor: ADHD, eczema Past Surgical History: No Surgical History Smoking Status: Current Every Day Smoker Additional Information: 04/03 ppd Alcohol Use: Occasionally Drug Use: None, Marijuana General Adult EDM: Chief Complaint: EARACHE/EAR PAIN HPI: HPI: Patient is a 25 year old male who presents to the ED today complaining of 7 out of 10 left ear pain, symptoms began 2 days ago. Patient denies any fever coughing or congestion. Patient states he needs a note for work. He states he missed work yesterday as well as today. Denies anything specifically exacerbating or relieving his symptoms. He states he has history of seasonal allergies but does not take anything Review of Systems: Review of Systems: Constitutional: Denies fever or chills. [] Eyes: Denies change in visual acuity. [] HENT: Reports left ear pain. Denies nasal congestion or sore throat. [] Respiratory: Denies cough or shortness of breath. [] Cardiovascular: Denies chest pain or edema. [] GI: Denies abdominal pain, nausea, vomiting, bloody stools or diarrhea. [] : Denies dysuria. [] Musculoskeletal: Denies back pain or joint pain. [] Integument: Denies rash. [] Neurologic: Denies headache, focal weakness or sensory changes. [] Psychiatric: Denies depression or anxiety. [] Heart Score: C/O Chest Pain: N/A Risk Factors: Risk Factors: DM, Current or recent (<one month) smoker, HTN, HLP, family history of CAD, obesity. Risk Scores: Score 0 - 3: 2.5% MACE over next 6 weeks - Discharge Home Score 4 - 6: 20.3% MACE over next 6 weeks - Admit for Clinical Observation Score 7 - 10: 72.7% MACE over next 6 weeks - Early Invasive Strategies Allergies: Allergies: Allergies Coded Allergies Type Severity Reaction Last Updated Verified No Known Drug Allergies 09/06/20 No Physical Exam: PE: Constitutional: Well developed, well nourished, no acute distress, non-toxic appearance. [] HENT: Normocephalic, atraumatic, bilateral external ears normal, oropharynx moist, no oral exudates, nose normal. [] Eyes: PERRLA, EOMI, conjunctiva normal, no discharge. [] Neck: Normal range of motion, no tenderness, supple, no stridor. [] Cardiovascular:Heart rate regular rhythm, no murmur [] Lungs & Thorax: Bilateral breath sounds clear to auscultation [] Abdomen: Bowel sounds normal, soft, no tenderness, no masses, no pulsatile masses. [] Skin: Warm, dry, no erythema, no rash. [] Back: No tenderness, no CVA tenderness. [] Extremities: No tenderness, no cyanosis, no clubbing, ROM intact, no edema. [] Neurologic: Alert and oriented X 3, normal motor function, normal sensory function, no focal deficits noted. [] Psychologic: Affect normal, judgement normal, mood normal. [] Current Patient Data: Vital Signs: Vital Signs Date Time Temp Pulse Resp B/P (MAP) Pulse Ox O2 Delivery O2 Flow Rate FiO2 09/06/20 14:40 97.9 60 18 118/60 (79) 98 Room Air 97.9 EKG: EKG: [] Radiology/Procedures: Radiology/Procedures: [] Course & Med Decision Making: Course & Med Decision Making Pertinent Labs and Imaging studies reviewed. (See chart for details) This is a 25-year-old male patient presenting to the ED today with left ear pain, symptoms for 2 days. No signs of otitis media. Discharged with Claritin- D. Follow-up with PCP. Note for work provided. Dasia Disclaimer: Dasia Disclaimer: This electronic medical record was generated, in whole or in part, using a voice recognition dictation system. Departure Departure Impression: Primary Impression: Otalgia, left ear Disposition: HOME / SELF CARE / HOMELESS Condition: STABLE Referrals: George CHEW MD (PCP) Follow-up in 1 to 2 weeks Patient Instructions: Otalgia-Brief Additional Instructions: You were seen for left ear pain. Use the prescribed medications as ordered. Follow-up with your doctor in 1 to 2 weeks Scripts Loratadine/Pseudoephedrine (CLARITIN-D 24 HOUR TABLET) 1 Each Tab.er.24h 1 TAB PO DAILY, #30 TAB 0 Refills Prov: SANJANA BAKER SIMON 09/06/20 SANJANA BAKER MASTER CONTROL TECHNICIAN Sep 06, 2020 15:29
[2020-09-06 15:38] VITALS: BP 121/70
== END 2020-09-06 15:38 | disposition home or self-care (01) ==
LOC: ER 12:39
DX: H92.02 Otalgia, left ear (principal); F17.200 Nicotine dependence, unspecified, uncomplicated
CPT/HCPCS: 99282

== ENCOUNTER 2020-12-08 12:04 | Emergency (ER) | payer MEDICAID ==
[~2020-12-08] VITALS: Ht 180.3 cm; Wt 119.0 kg
[~2020-12-08 12:04] MED LIST changes: +LORA-627 PO
[2020-12-08] MEDS ORDERED: PRED50TA PO (12:55)
[2020-12-08] MEDS ORDERED: AMOX875T PO (12:55)
--- NOTE | 2020-12-08 12:55 | PHYS DOC ---
Past Medical History Past Medical History: Other Additional Past Medical Histor: ADHD, eczema Past Surgical History: No Surgical History Smoking Status: Current Every Day Smoker Alcohol Use: Occasionally Drug Use: None, Marijuana General Adult EDM: Chief Complaint: SORE THROAT HPI: HPI: Patient is a 25 year old male who presents to the ED today complaining of sore throat, left ear pain, infected teeth, symptoms began a week ago. Patient denies any fever, trismus, cough or congestion. Review of Systems: Review of Systems: Constitutional: Denies fever or chills. [] Eyes: Denies change in visual acuity. [] HENT: Reports sore throat. Reports left ear pain. Denies nasal congestion Respiratory: Denies cough or shortness of breath. [] Cardiovascular: Denies chest pain or edema. [] GI: Denies abdominal pain, nausea, vomiting, bloody stools or diarrhea. [] : Denies dysuria. [] Musculoskeletal: Denies back pain or joint pain. [] Integument: Denies rash. [] Neurologic: Denies headache, focal weakness or sensory changes. [] Psychiatric: Denies depression or anxiety. [] Heart Score: C/O Chest Pain: N/A Risk Factors: Risk Factors: DM, Current or recent (<one month) smoker, HTN, HLP, family history of CAD, obesity. Risk Scores: Score 0 - 3: 2.5% MACE over next 6 weeks - Discharge Home Score 4 - 6: 20.3% MACE over next 6 weeks - Admit for Clinical Observation Score 7 - 10: 72.7% MACE over next 6 weeks - Early Invasive Strategies Allergies: Allergies: Allergies Coded Allergies Type Severity Reaction Last Updated Verified No Known Drug Allergies 12/08/20 No Physical Exam: PE: Constitutional: Well developed, well nourished, no acute distress, non-toxic appearance. [] HENT: Normocephalic, atraumatic, bilateral external ears normal, oropharynx moist, no oral exudates, nose normal. [] Left TM is mildly injected. Posterior pharynx with mild erythema, no exudate. Midline uvula. +2 anterior cervical adenopathy Poor dentition, gums are erythematous. Eyes: PERRLA, EOMI, conjunctiva normal, no discharge. [] Neck: Normal range of motion, no tenderness, supple, no stridor. [] Cardiovascular:Heart rate regular rhythm, no murmur [] Lungs & Thorax: Bilateral breath sounds clear to auscultation [] Abdomen: Bowel sounds normal, soft, no tenderness, no masses, no pulsatile masses. [] Skin: Warm, dry, no erythema, no rash. [] Back: No tenderness, no CVA tenderness. [] Extremities: No tenderness, no cyanosis, no clubbing, ROM intact, no edema. [] Neurologic: Alert and oriented X 3, normal motor function, normal sensory function, no focal deficits noted. [] Psychologic: Affect normal, judgement normal, mood normal. [] Current Patient Data: Vital Signs: Vital Signs Date Time Temp Pulse Resp B/P (MAP) Pulse Ox O2 Delivery O2 Flow Rate FiO2 12/08/20 12:23 99.3 102 16 163/94 98 Room Air 99.3 EKG: EKG: [] Radiology/Procedures: Radiology/Procedures: [] Course & Med Decision Making: Course & Med Decision Making Pertinent Labs and Imaging studies reviewed. (See chart for details) This a 25-year-old male patient with infected dental caries, otitis media and pharyngitis. Patient was discharged on amoxicillin and prednisone, Tylenol/Motrin for pain or fever. Encouraged to follow-up with a dentist in the next 1 to 2 weeks. Also encouraged follow-up with his own PCP. Provided return precautions and discharged in stable condition. Dragon Disclaimer: Dragon Disclaimer: This electronic medical record was generated, in whole or in part, using a voice recognition dictation system. Departure Departure Impression: Primary Impression: Infected dental caries Additional Impressions: Left otitis media Qualified Codes: H65.192 - Other acute nonsuppurative otitis media, left ear Acute pharyngitis Qualified Codes: J02.9 - Acute pharyngitis, unspecified Disposition: 01 HOME / SELF CARE / HOMELESS Condition: STABLE Referrals: George CHEW MD (PCP) Follow-up with your doctor in 1 to 2 weeks Follow up with your dentist in 1-2 weeks Patient Instructions: Dental Caries, Otitis Media, Adult, Lspo-ev-Mowy, Viral and Bacterial Pharyngitis Additional Instructions: Your evaluation in the emergency room shows you have an ear infection, throat infection, and dental infection. Take the prescribed medications as ordered until completed. Follow-up with your doctor in 1 to 2 weeks. Recommend for her to see a dentist as soon as you can. Scripts Prednisone (PREDNISONE) 50 Mg Tablet 1 TAB PO DAILY, #5 TAB Prov: SANJANA BAKER APRN 12/08/20 Amoxicillin (AMOXICILLIN) 875 Mg Tablet 1 TAB PO BID, #20 TAB Prov: SANJANA BAKER APRN 12/08/20 SANJANA BAKER APRN Dec 08, 2020 12:55
== END 2020-12-08 13:15 | disposition home or self-care (01) ==
LOC: ER 12:04
DX: H65.192 Other acute nonsuppurative otitis media, left ear (principal); J02.9 Acute pharyngitis, unspecified; K04.7 Periapical abscess without sinus; F17.200 Nicotine dependence, unspecified, uncomplicated; F90.9 Attention-deficit hyperactivity disorder, unspecified type
CPT/HCPCS: 99283

== ENCOUNTER 2021-04-13 12:39 | Emergency (ER) | payer MEDICAID ==
[~2021-04-13] VITALS: Ht 177.8 cm; Wt 111.4 kg
[~2021-04-13 12:39] MED LIST changes: +AMOX875T PO
[2021-04-13 13:09] VITALS: BP 136/86
--- NOTE | 2021-04-13 15:27 | PHYS DOC ---
Past Medical History Past Medical History: Other Additional Past Medical Histor: ADHD, eczema Past Surgical History: No Surgical History Smoking Status: Current Every Day Smoker Alcohol Use: Occasionally Drug Use: None, Marijuana General Adult EDM: Chief Complaint: EARACHE/EAR PAIN HPI: HPI: Patient is a 26-year-old male who presents today with bilateral ear fullness and pain and nasal congestion. Patient states over the last 2 days he has had increased ear fullness/pain and nasal congestion, he has been taking Claritin [id number] and he states that has not been helping. He states that 2 days ago he was tested for COVID-19 and does not yet have his results. Patient denies fever. He does not have any COVID vaccines. Review of Systems: Review of Systems: Constitutional: Denies fever or chills. [] Eyes: Denies change in visual acuity. [] HENT: Nasal congestion and bilateral ear pain Respiratory: Denies cough or shortness of breath. [] Cardiovascular: Denies chest pain or edema. [] GI: Denies abdominal pain, nausea, vomiting, bloody stools or diarrhea. [] : Denies dysuria. [] Musculoskeletal: Denies back pain or joint pain. [] Integument: Denies rash. [] Neurologic: Denies headache, focal weakness or sensory changes. [] Endocrine: Denies polyuria or polydipsia. [] Lymphatic: Denies swollen glands. [] Psychiatric: Denies depression or anxiety. [] Heart Score: C/O Chest Pain: N/A Risk Factors: Risk Factors: DM, Current or recent (<one month) smoker, HTN, HLP, family history of CAD, obesity. Risk Scores: Score 0 - 3: 2.5% MACE over next 6 weeks - Discharge Home Score 4 - 6: 20.3% MACE over next 6 weeks - Admit for Clinical Observation Score 7 - 10: 72.7% MACE over next 6 weeks - Early Invasive Strategies Allergies: Allergies: Allergies Coded Allergies Type Severity Reaction Last Updated Verified No Known Drug Allergies 12/08/20 No Physical Exam: PE: Constitutional: Well developed, well nourished, no acute distress, non-toxic appearance. [] HENT: Normocephalic, atraumatic, bilateral external ears normal, oropharynx moist and red, no exudate noted, nares abraham, TMs bulging no erythema noted Eyes: PERRLA, EOMI, conjunctiva normal, no discharge. [] Neck: Normal range of motion, no tenderness, supple, no stridor. [] Cardiovascular:Heart rate regular rhythm, no murmur [] Lungs & Thorax: Bilateral breath sounds clear to auscultation [] Abdomen: Bowel sounds normal, soft, no tenderness, no masses, no pulsatile masses. [] Skin: Warm, dry, no erythema, no rash. [] Back: No tenderness, no CVA tenderness. [] Extremities: No tenderness, no cyanosis, no clubbing, ROM intact, no edema. [] Neurologic: Alert and oriented X 3, normal motor function, normal sensory function, no focal deficits noted. [] Psychologic: Affect normal, judgement normal, mood normal. [] Current Patient Data: Vital Signs: Vital Signs Date Time Temp Pulse Resp B/P (MAP) Pulse Ox O2 Delivery O2 Flow Rate FiO2 04/13/21 13:09 98.0 100 12 136/86 (103) 98 Room Air 98.0 EKG: EKG: [] Radiology/Procedures: Radiology/Procedures: [] Course & Med Decision Making: Course & Med Decision Making Pertinent Labs and Imaging studies reviewed. (See chart for details) Did talk to patient at length about the need for a decongestant for the ear fullness and to dry out his nasal passages. It is great that he has been taking ykfk-jqa-inualbr Claritin but he needs a decongestant to go along with that I did talk to him at length about needing Mucinex D or Claritin-D to help dry out the fluid behind his ears. Also suggested sbqk-aqv-ucppucn Flonase 2 sprays each nare twice daily. Also would like for patient to use Afrin nasal spray 2 sprays each nare once daily for 3 days only. Patient verbalized understanding of this and is agreeable with the plan of care. Dasia Disclaimer: Dasia Disclaimer: This electronic medical record was generated, in whole or in part, using a voice recognition dictation system. Departure Departure Impression: Primary Impression: Nasal congestion Additional Impression: Otitis media of both ears Qualified Codes: H66.006 - Acute suppurative otitis media without spontaneous rupture of ear drum, recurrent, bilateral Disposition: 01 HOME / SELF CARE / HOMELESS Condition: STABLE Referrals: George CHEW MD (PCP) Patient Instructions: Allergic Rhinitis, Otitis Media, Adult Additional Instructions: Take an npld-fzu-yrbnjnv decongestant such as Mucinex D, Claritin D, or Sudafed, all of these can be found behind the pharmacy counter you must ask for them. Take as label directed Flonase foyu-pke-hwfutmb take 2 sprays each nare twice daily Afrin nasal spray 2 sprays each nare once daily for 3 days only Ckwq-svh-sjcybyn ibuprofen or Tylenol as needed for pain. Follow-up with your primary care physician as needed. LYNN SAINI REGISTERED DIETETIC TECHNICIAN Apr 13, 2021 15:27
== END 2021-04-13 15:35 | disposition home or self-care (01) ==
LOC: ER 12:39
DX: H66.006 Acute suppurative otitis media without spontaneous rupture of ear drum, recurrent, bilateral (principal); F90.9 Attention-deficit hyperactivity disorder, unspecified type; F17.200 Nicotine dependence, unspecified, uncomplicated
CPT/HCPCS: 99282

== ENCOUNTER 2021-04-15 16:05 | Emergency (ER) | payer MEDICAID ==
[~2021-04-15] VITALS: Ht 182.9 cm; Wt 110.0 kg
--- NOTE | 2021-04-15 17:37 | PHYS DOC ---
Past Medical History Past Medical History: Other Additional Past Medical Histor: ADHD, eczema Past Surgical History: No Surgical History Smoking Status: Current Every Day Smoker Alcohol Use: Occasionally Drug Use: None, Marijuana General Adult EDM: Chief Complaint: ABDOMINAL PAIN HPI: HPI: Patient is a 26 year old male without pertinent past medical history who presents with complaints of abdominal cramping. Cramping started this morning. Located primarily in the epigastrium. Does not radiate. Comes and goes. No clear triggers identified, but state he has been eating 8 tish a day for extra vitamin C. Had some nausea and one episode of vomiting yesterday. He thinks some phlegm triggered his gag reflex. Today he did have a bowel movement, but only had a small amount of diarrhea. No blood in his stool. No blood in emesis. No fevers or chills. No urinary urgency, frequency, or dysuria. No hematuria. Patient tested positive for COVID on 04/12. Denies any cough, congestion, sore throat, chest pain, or shortness of breath. No history of abdominal surgeries. Has had similar discomfort in the past, but states that he wanted to be "extra careful since I have COVID." Review of Systems: Review of Systems: Constitutional: Denies fever or chills. [] Eyes: Denies change in visual acuity. [] HENT: Denies nasal congestion or sore throat. [] Respiratory: Denies cough or shortness of breath. [] Cardiovascular: Denies chest pain or edema. [] GI: Reports abdominal pain, nausea, vomiting, diarrhea : Denies dysuria. [] Musculoskeletal: Denies back pain or joint pain. [] Integument: Denies rash. [] Neurologic: Denies headache, focal weakness or sensory changes. [] Psychiatric: Denies depression or anxiety. [] Heart Score: C/O Chest Pain: No Allergies: Allergies: Allergies Coded Allergies Type Severity Reaction Last Updated Verified No Known Drug Allergies 12/08/20 No Physical Exam: PE: Constitutional: Appears comfortable, no distress, nontoxic. Neck: Normal range of motion, no tenderness, supple, no stridor. [] Cardiovascular:Heart rate regular rhythm, no murmur [] Lungs & Thorax: Bilateral breath sounds clear to auscultation [] Abdomen: Soft, nondistended. No rigidity, rebound, grimace, or guarding. Does report diffuse mild tenderness to palpation (although no outward evidence of pain). Patient states worst on the right side. Skin: Warm, dry, no erythema, no rash. [] Neurologic: Alert and oriented X 3, normal motor function, normal sensory function, no focal deficits noted. [] Psychologic: Affect normal, judgement normal, mood normal. [] Current Patient Data: Vital Signs: Vital Signs Date Time Temp Pulse Resp B/P (MAP) Pulse Ox O2 Delivery O2 Flow Rate FiO2 04/15/21 17:20 99.0 79 16 155/98 (117) 100 Room Air 99.0 EKG: EKG: [] Radiology/Procedures: Radiology/Procedures: [] Course & Med Decision Making: Course & Med Decision Making Pertinent Labs and Imaging studies reviewed. (See chart for details) Patient a 26-year-old male who was recently tested positive for COVID on 04/12 who presents with epigastric cramping, mild nausea, and mild diarrhea. Afebrile, vital signs normal. Well-appearing on exam. Complains of diffuse mild tenderness on abdominal exam, but has no outward evidence of discomfort with deep palpation. States he has been eating large amounts of tish for vitamin C, which I think is likely contributing to his symptoms. Will check electrolytes, LFTs, lipase, cell counts. We will defer any abdominal imaging at this time. 1736 Labs reassuring. Exam remains largely benign. Will continue to defer any imaging. Patient advised on return precautions. 1821 Dasia Disclaimer: Dasia Disclaimer: This electronic medical record was generated, in whole or in part, using a voice recognition dictation system. Departure Departure Impression: Primary Impression: Epigastric pain Disposition: HOME / SELF CARE / HOMELESS Condition: STABLE Referrals: George CHEW MD (PCP) Additional Instructions: Your labs were reassuring. This may be due to the large amounts of the tish that you are eating. Please do not force vitamin C. If you need extra vitamin C, you can consider using a multivitamin. Please use as labeled as instructed. If you develop worsening abdominal pain, if your abdominal pain becomes constant, you have severe nausea/vomiting, blood in your stool, or other new/concerning symptoms please return to the emergency department for reevaluation. SELENA WATT MD Apr 15, 2021 17:37
[2021-04-15 18:00] VITALS: BP 147/85
[2021-04-15 18:06] LABS: BASO % 1 % (0-3); EOS % 1 % (0-3); HEMATOCRIT 46.3 % (39.0-53.0); HEMOGLOBIN 15.6 g/dL (13.0-17.5); LYMPH % 42 % (24-48); MEAN CORPUSCULAR HEMOGLOBIN 30 pg (25-35); MEAN CORPUSCULAR HGB CONC 34 g/dL (31-37); MEAN CORPUSCULAR VOLUME 89 fL (79-100); MONO # 0.8 x10^3/uL (0.0-1.1); MONO % 17 % (0-9); NEUT # 1.8 x10^3/uL (1.8-7.7); NEUT % 39 % (31-73); PLATELET COUNT 195 x10^3/uL (140-400); RED BLOOD COUNT 5.19 x10^6/uL (4.30-5.70); RED CELL DISTRIBUTION WIDTH 14.8 % (11.5-14.5); WHITE BLOOD COUNT 4.7 x10^3/uL (4.0-11.0)
[2021-04-15 18:13] LABS: CALCIUM 8.4 mg/dL (8.5-10.1); CREATININE 0.7 mg/dL (0.7-1.3); GFR 162.5
[2021-04-15 18:19] LABS: ALBUMIN 3.8 g/dL (3.4-5.0); TOTAL BILIRUBIN 0.2 mg/dL (0.2-1.0); TOTAL PROTEIN 7.8 g/dL (6.4-8.2)
== END 2021-04-15 18:50 | disposition home or self-care (01) ==
LOC: ER 16:05
DX: R10.13 Epigastric pain (principal); R11.0 Nausea; R19.7 Diarrhea, unspecified; F17.200 Nicotine dependence, unspecified, uncomplicated; F90.9 Attention-deficit hyperactivity disorder, unspecified type
CPT/HCPCS: 36415; 80053; 83690; 85025; 99283